=== PATIENT | female | born 1960 ===

== ENCOUNTER 2018-12-07 13:00 | Inpatient (IN) | payer OTHER | END 2018-12-18 10:05 | disposition home or self-care (01) | DRG 735 | LOC: O/R 13:00 → OB/GYN 12-17 05:41 → SURH 12-17 13:00 → OB/GYN 12-17 18:57 | PROVIDERS: ADMIT Obstetrics & Gynecology Gynecologic Oncology | PROC: 0UT94ZZ Resection of Uterus, Percutaneous Endoscopic Approach (ICD-10-PCS; 2018-12-17) | PROC: 0UT74ZZ Resection of Bilateral Fallopian Tubes, Percutaneous Endoscopic Approach (ICD-10-PCS; 2018-12-17) | PROC: 0UT24ZZ Resection of Bilateral Ovaries, Percutaneous Endoscopic Approach (ICD-10-PCS; 2018-12-17) | PROC: 07TC4ZZ Resection of Pelvis Lymphatic, Percutaneous Endoscopic Approach (ICD-10-PCS; principal; 2018-12-17 15:45) | DX: C54.1 Malignant neoplasm of endometrium (principal) ==